=== PATIENT | male | born 1955 | race Caucasian/White ===

== ENCOUNTER 2018-01-26 12:49 | Inpatient (IN) ==
[2018-01-26 13:09] LABS: Baso # (Auto) 0.1 th/mm3 (0.0-0.2); Baso % (Auto) 1.3 % (0.0-2.0); Eos # (Auto) 0.2 th/mm3 (0.0-0.4); Eos % (Auto) 2.6 % (0.0-4.0); Hematocrit 40.3 % (39.0-51.0); Hemoglobin 13.5 gm/dL (13.0-17.0); Lymph # (Auto) 1.6 th/mm3 (1.0-4.8); Lymph % (Auto) 23.1 % (9.0-44.0); Mean Corpuscular HGB Conc 33.5 % (32.0-36.0); Mean Corpuscular Hemoglobin 30.5 pg (27.0-34.0); Mean Corpuscular Volume 91.2 fL (80.0-100.0); Mono # (Auto) 0.9 th/mm3 (0.0-0.9); Mono % (Auto) 12.8 % (0.0-8.0); Neut # (Auto) 4.2 th/mm3 (1.8-7.7); Neut % (Auto) 60.2 % (16.0-70.0); Platelet Count 320 th/mm3 (150-450); Red Blood Count 4.41 mil/mm3 (4.50-5.90); Red Cell Distribution Width 15.2 % (11.6-17.2)
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
[2018-01-26 13:19] LABS: Activated Partial Thrombo Time 25.8 sec (24.3-30.1); INR 1.1 Ratio
--- NOTE | 2018-01-26 13:19 | CT ---
EXAM DATE: 01/26/2018 1:12 PM EDT AGE/SEX: 89 years / Male INDICATIONS: Trauma Alert CLINICAL DATA: This is the patient's initial encounter. Patient reports that signs and symptoms have been present for 1 day and indicates a pain score of Nonresponsive. MEDICAL/SURGICAL HISTORY: Non-responsive. Non-responsive. RADIATION DOSE: 25.06 CTDI (mGy) COMPARISON: No prior exams available for comparison. TECHNIQUE: Contiguous axial images were obtained using helical multirow detector technique. The vol umetric data was post-processed with multiplanar reconstruction in oblique axial, sagittal, and coron al planes. Using automated exposure control and adjustment of the mA and/or kV according to patient s ize, radiation dose was kept as low as reasonably achievable to obtain optimal diagnostic quality simon ges. DICOM format image data is available electronically for review and comparison. FINDINGS: There is normal sagittal spinal alignment without anterolisthesis or retrolisthesis. No acute fractur e or dislocation is identified. 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 There is incomplete fus ion of the posterior C1 ring as well. There is degenerative disc disease at C4-C5 and extending throu gh C6-C7. Facet arthrosis is most prominent on the right at C3-C4 and on the left at C7-T1. No large disc herniation is seen in the upper cervical spine. The visualized surrounding structures demonstrat e no acute finding. CONCLUSION: 1. No acute cervical spine abnormality is identified. 2. There is multilevel degenerative change, as above, with congenital variant of the C1 ring. Electronically signed by: Jacob Diaz MD 01/26/2018 1:18 PM EDT
[2018-01-26] MEDS ORDERED: ceFAZolin 2 GM Premix Inj 2 GM/50 ML PIGGYBACK IV.SIG ONE (13:21)
[2018-01-26] MEDS ORDERED: Diphtheria/Tetanus/Pertussis Vaccine Inj 0.5 ML Syringe IM ONE (13:22)
[2018-01-26] MEDS ORDERED: Lidocaine 1%/Epinephrine 1:100,000 Inj 30 ML Vial ONE (13:29)
--- NOTE | 2018-01-26 13:29 | CT ---
EXAM DATE: 01/26/2018 1:21 PM EDT AGE/SEX: 89 years / Male INDICATIONS: Trauma Alert CLINICAL DATA: This is the patient's initial encounter. Patient reports that signs and symptoms have been present for 1 day and indicates a pain score of Nonresponsive. MEDICAL/SURGICAL HISTORY: Non-responsive. Non-responsive. RADIATION DOSE: 9.01 CTDI (mGy) COMPARISON: No prior exams available for comparison. TECHNIQUE: Multiple contiguous axial images were obtained through the chest during bolus infusion of 98ML ml Omnipaque 350 (iohexol) nonionic water-soluble contrast as a single exam dose. Images wer e obtained in suspended respiration using multiple row detector helical technique. Using automated e xposure control and adjustment of the mA and/or kV according to patient size, radiation dose was kept as low as reasonably achievable to obtain optimal diagnostic quality images. DICOM format image sony a is available electronically for review and comparison. FINDINGS: Lungs: The lungs are symmetrically aerated. No infiltrates or nodular densities are seen. Mediastinum: There is good visualization of the great vessels of the middle mediastinum. No evidenc e of mediastinal or hilar adenopathy/mass. Pleurae: No evidence of focal thickening or pleural effusion. Axillae: Unremarkable. Bony Structures: There are some hypertrophic changes in the sternum which I believe are chronic may be an old healed fracture but there is no evidence of an acute fracture Miscellaneous: The examination was extended to include the upper abdomen, and both adrenal glands ar e normal in size and configuration. CONCLUSION: 1. Old healed sternal fracture or postoperative change. 2. 3.7 cm left retroperitoneal mass, adjacent to the left adrenal gland indeterminant, should be wor ked up on an outpatient basis. It also abuts the stomach, clearly chronic. Electronically signed by: Deven Schaeffer MD 01/26/2018 1:28 PM EDT
--- NOTE | 2018-01-26 13:38 | CT ---
EXAM DATE: 01/26/2018 1:21 PM EDT AGE/SEX: 89 years / Male INDICATIONS: Trauma Alert CLINICAL DATA: This is the patient's initial encounter. Patient reports that signs and symptoms have been present for 1 day and indicates a pain score of Nonresponsive. MEDICAL/SURGICAL HISTORY: Non-responsive. Non-responsive. ORAL CONTRAST: No oral contrast ingested. RADIATION DOSE: 9.01 CTDI (mGy) COMPARISON: No prior exams available for comparison. TECHNIQUE: Multiple contiguous axial images were obtained through the abdomen and pelvis following b olus infusion of 98ML ml Omnipaque 350 (iohexol) nonionic water-soluble contrast as a single exam d ose. No oral contrast ingested. Using automated exposure control and adjustment of the mA and/or kV according to patient size, radiation dose was kept as low as reasonably achievable to obtain optimal diagnostic quality images. DICOM format image data is available electronically for review and compar reji. FINDINGS: Lower chest: Please refer to chest CT report for description of the supradiaphragmatic findings. Hepatobiliary: No acute liver injury is present. No calcified gallstones are present. Kidneys: No hydronephrosis, stone, or mass. Adrenal Glands: Within normal limits. Spleen: No normal splenic tissue is identified. There is lobulated enhancing material in the left upp er quadrant likely represents residual spleen. Additionally, in a left suprarenal location adjacent t o the tail the pancreas is a lobulated soft tissue mass measuring 4.3 x 3.3 cm similar density to the left upper quadrant structure. In the left pelvis there is a 2.3 cm hyperdense soft tissue density s tructure. Pancreas: No acute injury. Pancreatic head is fatty replaced. Vascular: The aorta is nonaneurysmal. There is mild atherosclerotic disease. No acute injury is ident ified. Bowel/Mesentery: The stomach and small bowel demonstrate no abnormality. No acute colon abnormality i s seen. There is no free intraperitoneal air or fluid. Abdominal Wall: There is a small fat-containing umbilical hernia. Retroperitoneum: No lymphadenopathy. Bladder: No wall thickening or mass. Reproductive: Within normal limits. Inguinal: No lymphadenopathy or hernia. Musculoskeletal: No acute osseous abnormality is identified. There are degenerative changes of the nghia mbar spine with severe degenerative disc disease at L4-L5. Spinal stimulator leads are present in ant erior the posterior aspect of the thoracic spinal canal. No fracture is identified. Spinal stimulator plaque is subcutaneous implanted in the left gluteal region. CONCLUSION: 1. No acute traumatic injury is identified within the abdomen or pelvis. 2. There is lobulated soft tissue in the left upper quadrant, in a left suprarenal location, and in the left pelvis. The appearance and density strongly suggests that this represents residual splenic t issue and intraperitoneal splenules possibly from prior splenic fracture or surgery. This could be co nfirmed with nuclear medicine sulfur colloid or heat damaged red blood cell scan, if needed. Electronically signed by: Jacob Diaz MD 01/26/2018 1:37 PM EDT
[2018-01-26] MEDS: Sod Chloride 0.9% Inj 1,000 ML IV.CONT SCH ×2 (14:05→20:50)
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
[2018-01-26] MEDS: Pantoprazole Inj 40 MG Vial IV.PUSH SCH (15:50)
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
[2018-01-26] MEDS ORDERED: Dextrose 50% in Water 50 ML Vial IV.PUSH PRN (17:00)
--- NOTE | 2018-01-26 18:01 | MP ---
cc: Armen Solorzano MD DATE OF OPERATION: 01/26/2018 PREPROCEDURE DIAGNOSES: Bleeding laceration to the occiput. POSTPROCEDURE DIAGNOSIS: Bleeding laceration to the occiput. PROCEDURE: Suture closure of laceration with control of hemorrhage. SURGEON: Armen Solorzano MD ANESTHESIA: Lidocaine 1% with epinephrine. COMPLICATIONS: None. At the patient's bedside, the area of concern was identified. His hair in this region was shaved. The area was prepped with Betadine, and 2-0 Prolene was then used to close the laceration and control the bleeding. Two interrupted [id number] stitches were placed. This seemed to control the bleeding. The skin edges in between were approximated with moon. The patient tolerated the procedure well. Armen Solorzano MD JLS/deedee , 02:32 PM , 02:39 PM
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
[2018-01-26] MEDS ORDERED: levETIRAcetam 500mg/100mL Inj 100 ML IV.SIG SCH (21:00)
[2018-01-27] MEDS: Morphine Sulfate Inj 2 MG/ML Vial IV.PUSH PRN ×3 (01:09→21:47)
[2018-01-27] MEDS: Docusate Sodium 100 MG Capsule PO SCH ×3 (02:22→21:47)
[2018-01-27] MEDS ORDERED: Chlorhexidine Gluconate 2% 1 Pack (2 Cloths) TOPICAL PRN (04:00)
[2018-01-27] MEDS: Chlorhexidine Gluconate 2% 1 Pack (2 Cloths) TOPICAL SCH (04:50)
[2018-01-27 05:21] LABS: Baso # (Auto) 0.1 th/mm3 (0.0-0.2); Baso % (Auto) 0.9 % (0.0-2.0); Eos # (Auto) 0.2 th/mm3 (0.0-0.4); Eos % (Auto) 2.8 % (0.0-4.0); Hemoglobin 12.4 gm/dL (13.0-17.0); Lymph # (Auto) 2.3 th/mm3 (1.0-4.8); Lymph % (Auto) 27.3 % (9.0-44.0); Mean Corpuscular HGB Conc 33.5 % (32.0-36.0); Mean Corpuscular Hemoglobin 30.6 pg (27.0-34.0); Mean Corpuscular Volume 91.4 fL (80.0-100.0); Mean Platelet Volume 6.9 fL (7.0-11.0); Mono # (Auto) 1.3 th/mm3 (0.0-0.9); Mono % (Auto) 16.2 % (0.0-8.0); Neut # (Auto) 4.4 th/mm3 (1.8-7.7); Neut % (Auto) 52.8 % (16.0-70.0); Platelet Count 273 th/mm3 (150-450); Red Blood Count 4.04 mil/mm3 (4.50-5.90); Red Cell Distribution Width 15.2 % (11.6-17.2); White Blood Count 8.3 th/mm3 (4.0-11.0)
[2018-01-27 05:47] LABS: Albumin 3.7 g/dL (3.4-5.0); Anion Gap 9 meq/L (5-15); Aspartate Aminotransferase 12 U/L (15-37); Blood Urea Nitrogen 10 mg/dL (7-18); Calcium 8.4 mg/dL (8.5-10.1); Carbon Dioxide 31.5 meq/L (21.0-32.0); Chloride 94 meq/L (98-107); Glomerular Filtration Rate 51 mL/min (>89); Glucose,Random 125 mg/dL (74-106); Potassium 3.5 meq/L (3.5-5.1); Sodium 134 meq/L (136-145)
[2018-01-27 06:00] LABS: Alanine Aminotransferase 19 U/L (12-78); Alkaline Phosphatase 70 U/L (45-117); Total Protein 6.9 g/dL (6.4-8.2)
[2018-01-27] MEDS: Insulin NovoLIN Regular Correctional Sugar Inj SQ SCH ×6 (07:57→22:31)
[2018-01-27] MEDS: Sod Chloride 0.9% Inj 1,000 ML IV.CONT SCH ×3 (08:12→19:38)
[2018-01-27] MEDS: Metoprolol Tartrate 25 MG Tablet PO SCH (08:13)
[2018-01-27] MEDS: Acetaminophen 325 MG Tablet PO PRN ×2 (08:13→16:48)
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
--- NOTE | 2018-01-27 09:32 | CT ---
EXAM DATE: 01/27/2018 9:28 AM EDT AGE/SEX: 62 years / Male INDICATIONS: Follow up intracerebral hemorrhage CLINICAL DATA: This is the patient's subsequent encounter. Patient reports that signs and symptoms h ave been present for 2 days and indicates a pain score of Nonresponsive. MEDICAL/SURGICAL HISTORY: Hypertension. Diabetes. Pacemaker. RADIATION DOSE: 67.45 CTDI (mGy) COMPARISON: [facility], CT HEAD W/O CONTRAST, 01/26/2018. . TECHNIQUE: CT of the head without contrast. Using automated exposure control and adjustment of the mA and/or kV according to patient size, radiation dose was kept as low as reasonably achievable to ob tain optimal diagnostic quality images. DICOM format image data is available electronically for revi ew and comparison. FINDINGS: Cerebrum: Small cortical contusions are seen in the orbital frontal region on the left. The contusio n basal ganglia head of the caudate on the right side has progressed and now measures 2 cm. Ventricular size is appropriate Posterior Fossa: The cerebellum and brainstem are intact. The 4th ventricle is midline. The cerebe llopontine angle is unremarkable. Extracranial: The visualized portion of the orbits is intact. Skull: The calvaria is intact. No evidence of skull fracture. Large cephalohematoma left occipital region. CONCLUSION: 1. Progression of the known contusions. The most significant change is in the basal ganglia right fr ontal region. . Electronically signed by: Coleman Coates MD 01/27/2018 9:31 AM EDT
[2018-01-27] MEDS ORDERED: Potassium Bicarbonate 25 MEQ Effervescent Tablet PO ONE (10:15)
[2018-01-27] MEDS ORDERED: Potassium Chloride 25 MEQ Effervescent Tablet PO ONE (10:30)
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
[2018-01-27] MEDS: Pantoprazole Inj 40 MG Vial IV.PUSH SCH (15:37)
--- NOTE | 2018-01-27 18:13 | P.PNNS ---
Subjective Interval history: Pt awake and alert. He is confused at times but pleasant. He is oriented to place. He complains of frontal headache, with nausea. Denies weakness. <CardianeAldair - Last Filed: 01/27/18 18:07> Physical Exam Vital signs: Vital Signs 01/26/18 18:29 01/26/18 19:00 01/26/18 20:00 Temperature 99.0 F Pulse Rate 74 92 H 89 Respiratory Rate 22 23 19 Blood Pressure 167/82 H Pulse Oximetry 98 97 94 L 01/26/18 21:00 01/26/18 21:06 01/26/18 21:08 Temperature Pulse Rate 72 66 Respiratory Rate 15 15 13 Blood Pressure 121/61 Pulse Oximetry 92 L 93 L 01/26/18 22:00 01/27/18 00:00 01/27/18 02:00 Temperature 98.6 F Pulse Rate 66 60 64 Respiratory Rate 16 13 14 Blood Pressure 134/69 114/65 125/67 Pulse Oximetry 93 L 93 L 93 L 01/27/18 04:00 01/27/18 05:44 01/27/18 06:00 Temperature 98.5 F Pulse Rate 78 74 Respiratory Rate 21 15 14 Blood Pressure 118/72 149/80 H Pulse Oximetry 96 93 L 01/27/18 07:25 01/27/18 08:00 01/27/18 09:47 Temperature Pulse Rate Respiratory Rate 13 16 Blood Pressure Pulse Oximetry 96 96 Intake & Output 01/26/18 01/27/18 01/27/18 18:59 06:59 18:59 Intake Total 770 / 770 2685 / 2685 Output Total 1200 / 1200 600 / 600 Balance -430 / -430 2085 / 2085 Weight 108.8 kg 111.1 kg Intake: IV 50 / 50 2205 / 2205 NS Inj 1,000 ML @ 100 mls/hr IV 1999 / 1999 .CONT .Q10H [facility] Rx#:[id number] Ofirmev Inj 1,000 mg In 100 ml 100 / 100 @ 400 mls/hr IV.SIG Q8H PRN Rx# :[id number] Keppra Inj 500 MG In NS Inj 100 105 / 105 ML @ 400 mls/hr IV.SIG Q12H [facility] Rx#:[id number] Oral 720 / 720 480 / 480 Output: Urine 1200 / 1200 600 / 600 Other: # Voids 2 2 Date of Last Bowel Movement 01/27/18 01/27/18 # Bowel Movements 1 Weight On Admission 240 kg - Constitutional no acute distress, obese - Routine HEENT Exam Head: Absent: atraumatic (Pt reportedly with laceration to posterior head with sutures and moon in place. Currently with bandage in place.) Eye: Present: PERRL (Pupils 3mm bilaterally reactive bilaterally.) - Routine Respiratory Exam Present: CTA bilaterally. Absent: respiratory distress, rhonchi, wheezes - Routine Cardiovascular Exam Present: RRR, S1, S2. Absent: murmur - Routine Abdominal Exam Present: soft, normoactive bowel sounds. Absent: distended, firm - Routine Skin Exam Absent: cyanosis, erythema Comments: laceration to occipital area with bandage in place. RN states sutures and moon on place. - Routine Neurological Exam Present: alert, oriented X3, altered mental status (Some confusion but pleasant. Pt with short term memory loss.), normal speech. Absent: motor deficit - Detailed Neurological Exam: Coma Scale Eye Opening: Spontaneous Verbal Response: Oriented Motor Response: Obey commands [place] Coma Scale Total: 15 - Routine Psychiatric Exam Present: normal affect, cooperative. Absent: good insight, good judgment, anxious, agitated <Aldair Monsalve - Last Filed: 01/27/18 18:07> Vital signs: Vital Signs 01/26/18 19:00 01/26/18 20:00 01/26/18 21:00 Temperature 99.0 F Pulse Rate 92 H 89 72 Respiratory Rate 23 19 15 Blood Pressure 121/61 Pulse Oximetry 97 94 L 92 L 01/26/18 21:06 01/26/18 21:08 01/26/18 22:00 Temperature Pulse Rate 66 66 Respiratory Rate 15 13 16 Blood Pressure 134/69 Pulse Oximetry 93 L 93 L 01/27/18 00:00 01/27/18 02:00 01/27/18 04:00 Temperature 98.6 F 98.5 F Pulse Rate 60 64 78 Respiratory Rate 13 14 21 Blood Pressure 114/65 125/67 118/72 Pulse Oximetry 93 L 93 L 96 01/27/18 05:44 01/27/18 06:00 01/27/18 07:25 Temperature Pulse Rate 74 Respiratory Rate 15 14 Blood Pressure 149/80 H Pulse Oximetry 93 L 96 01/27/18 08:00 01/27/18 09:47 01/27/18 12:00 Temperature 98.5 F 98.3 F Pulse Rate 74 64 Respiratory Rate 13 16 14 Blood Pressure 159/80 H 147/75 H Pulse Oximetry 93 L 95 01/27/18 16:00 Temperature 98.4 F Pulse Rate 78 Respiratory Rate 14 Blood Pressure 173/83 H Pulse Oximetry 94 L Intake & Output 01/26/18 01/27/18 01/27/18 18:59 06:59 18:59 Intake Total 770 / 770 2685 / 2685 Output Total 1200 / 1200 600 / 600 Balance -430 / -430 2085 / 2085 Weight 108.8 kg 111.1 kg Intake: IV 50 / 50 2205 / 2205 NS Inj 1,000 ML @ 100 mls/hr IV 1999 / 1999 .CONT .Q10H [facility] Rx#:[id number] Ofirmev Inj 1,000 mg In 100 ml 100 / 100 @ 400 mls/hr IV.SIG Q8H PRN Rx# :[id number] Keppra Inj 500 MG In NS Inj 100 105 / 105 ML @ 400 mls/hr IV.SIG Q12H [facility] Rx#:[id number] Oral 720 / 720 480 / 480 Output: Urine 1200 / 1200 600 / 600 Other: # Voids 2 2 Date of Last Bowel Movement 01/27/18 01/27/18 # Bowel Movements 1 Weight On Admission 240 kg - Additional findings Additional findings: Impressions Chest X-Ray 01/26/18 12:50 CONCLUSION: Lungs are clear. No obvious fracture seen. Pacemaker and epidural stimulator in good position. Pelvis X-Ray 01/26/18 12:50 CONCLUSION: Epidural stimulator device overlies left hemipelvis Abdomen/Pelvis CT 01/26/18 12:51 CONCLUSION: 1. No acute traumatic injury is identified within the abdomen or pelvis. 2. There is lobulated soft tissue in the left upper quadrant, in a left suprarenal location, and in the left pelvis. The appearance and density strongly suggests that this represents residual splenic tissue and intraperitoneal splenules possibly from prior splenic fracture or surgery. This could be confirmed with nuclear medicine sulfur colloid or heat damaged red blood cell scan, if needed. Cervical Spine CT 01/26/18 12:51 CONCLUSION: 1. No acute cervical spine abnormality is identified. 2. There is multilevel degenerative change, as above, with congenital variant of the C1 ring. Chest CT 01/26/18 12:51 CONCLUSION: 1. Old healed sternal fracture or postoperative change. 2. 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 It also abuts the stomach, clearly chronic. Head CT 01/26/18 12:51 CONCLUSION: 1. Small areas of intraparenchymal hemorrhage as described above. No drainable hemorrhagic collections are seen. No mass or mass effect. . Head CT 01/27/18 00:00 CONCLUSION: 1. Progression of the known contusions. The most significant change is in the basal ganglia right frontal region. . <Stephon Quach - Last Filed: 01/27/18 18:37> Assessment and Plan - Assessment (1) Intracranial hemorrhage Code(s): I62.9 - Nontraumatic intracranial hemorrhage, unspecified Status: Acute (2) Laceration of occipital scalp Code(s): S01.01XA - Laceration without foreign body of scalp, initial encounter Status: Acute Qualifiers: Encounter type: initial encounter Qualified Code(s): S01.01XA - Laceration without foreign body of scalp, initial encounter (3) Mild major neurocognitive disorder as late effect of traumatic brain injury without behavioral disturbance Code(s): S06.9X9S - Unspecified intracranial injury with loss of consciousness of unspecified duration, sequela; F02.80 - Dementia in other diseases classified elsewhere without behavioral disturbance Status: Acute - Plan A: [age]yoM in [facility], [facility] on [facility]. Spine cleared (CT C-spine negative). Head CT Some blossoming of right basal ganglia area contusion. P: Continue with neuro checks Continue to get oob with assistance. Continue with blood pressure control SCDs for DVT prophylaxis Continue with Keppra for seizure prophylaxis. Discussed plan/care with RN. <Aldair Monsalve - Last Filed: 01/27/18 18:07> - Attending Attestation The exam, history, and the medical decision-making described in the above note were completed with the assistance of the mid-level provider. I reviewed and agree with the findings presented. I attest that I had a [id number] encounter with the patient on the same day, and personally performed and documented my assessment and findings in the medical record. Stable examination although follow-up imaging study reveals blossoming right basal ganglia contusion/hemorrhage. He is hypertensive with systolic blood pressure in the 170s and we will regulate his hypertension better and continue monitoring closely in the surgical intensive care unit. Discussed with patient and nursing staff. <Stephon Quach - Last Filed: 01/27/18 18:37>
[2018-01-27] MEDS: Lisinopril 10 MG Tablet PO SCH (21:16)
[2018-01-28] MEDS: Chlorhexidine Gluconate 2% 1 Pack (2 Cloths) TOPICAL SCH (06:31)
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
[2018-01-28] MEDS: Insulin NovoLIN Regular Correctional Sugar Inj SQ SCH ×4 (08:53→21:58)
[2018-01-28] MEDS: Lisinopril 10 MG Tablet PO SCH ×2 (08:54→20:54)
[2018-01-28] MEDS: Docusate Sodium 100 MG Capsule PO SCH ×2 (08:54→20:53)
[2018-01-28] MEDS: Metoprolol Tartrate 25 MG Tablet PO SCH ×2 (08:55→20:54)
[2018-01-28] MEDS ORDERED: Melatonin 5 MG Tablet PO PRN (09:45)
--- NOTE | 2018-01-28 10:00 | P.PNNS ---
Subjective Interval history: Pt awake and alert. He is confused. He is repeatedly picking at lines despite pieter told not to. RN states pts mother stated he takes "a lot of Xanax and pts brother states he gets pain medication from different doctors." He complains of mild frontal headache. Denies weakness. <Aldair Monsalve - Last Filed: 01/28/18 09:44> Physical Exam Vital signs: Vital Signs 01/27/18 09:47 01/27/18 12:00 01/27/18 16:00 Temperature 98.3 F 98.4 F Pulse Rate 64 78 Respiratory Rate 16 14 14 Blood Pressure 147/75 H 173/83 H Pulse Oximetry 95 94 L 01/27/18 17:20 01/27/18 18:00 01/27/18 20:00 Temperature 97.1 F L Pulse Rate 78 76 Respiratory Rate 16 21 Blood Pressure 179/97 H Pulse Oximetry 94 L 01/27/18 21:27 01/27/18 22:00 01/28/18 00:00 Temperature 97.4 F L Pulse Rate 68 94 H Respiratory Rate 22 Blood Pressure 157/83 H Pulse Oximetry 96 96 01/28/18 02:00 01/28/18 04:00 01/28/18 06:00 Temperature 98.6 F Pulse Rate 84 80 74 Respiratory Rate 21 Blood Pressure 147/78 H Pulse Oximetry 95 01/28/18 07:19 Temperature Pulse Rate Respiratory Rate Blood Pressure Pulse Oximetry 92 L Intake & Output 01/27/18 01/28/18 01/28/18 18:59 06:59 18:59 Intake Total 825 / 825 785 / 785 Output Total 1750 / 1750 1050 / 1050 Balance -925 / -925 -265 / -265 Intake: IV 105 / 105 305 / 305 NS Inj 1,000 ML @ 100 mls/hr IV 200 / 200 .CONT .Q10H [facility] Rx#:[id number] Keppra Inj 500 MG In NS Inj 100 105 / 105 105 / 105 ML @ 400 mls/hr IV.SIG Q12H [facility] Rx#:[id number] Oral 720 / 720 480 / 480 Output: Urine 1750 / 1750 1050 / 1050 Other: # Voids 2 Date of Last Bowel Movement 01/27/18 01/27/18 # Bowel Movements 1 0 - Constitutional mild distress (Related to his confusion. No respiratory distress or unstable vitals.), agitated (Mild to moderate picking at lines despite being told not to. ) - Routine HEENT Exam Head: Absent: atraumatic (bandage on back of head dry.) Eye: Present: PERRL (Pupils 3mm bilaterally reactive bilaterally.) - Routine Respiratory Exam Present: CTA bilaterally. Absent: respiratory distress, rhonchi, wheezes - Routine Cardiovascular Exam Present: RRR, S1, S2. Absent: murmur - Routine Abdominal Exam Present: soft, normoactive bowel sounds. Absent: tenderness, distended, firm - Routine Skin Exam Absent: cyanosis, erythema - Routine Neurological Exam Present: alert, oriented X3 (Oriented at times but overall confused.), altered mental status (Confused ), moving all extremities, normal speech (but confused.) , tremors (Some mild tremors.). Absent: sensory deficit, motor deficit - Detailed Neurological Exam: Coma Scale Eye Opening: Spontaneous Verbal Response: Oriented (but confused.) Motor Response: Obey commands [place] Coma Scale Total: 15 - Routine Psychiatric Exam Present: cooperative, anxious, agitated. Absent: good insight, good judgment <Aldair Monsalve - Last Filed: 01/28/18 09:44> Vital signs: Vital Signs 01/27/18 16:00 01/27/18 17:20 01/27/18 18:00 Temperature 98.4 F Pulse Rate 78 78 Respiratory Rate 14 16 Blood Pressure 173/83 H Pulse Oximetry 94 L 01/27/18 20:00 01/27/18 21:27 01/27/18 22:00 Temperature 97.1 F L Pulse Rate 76 68 Respiratory Rate 21 Blood Pressure 179/97 H Pulse Oximetry 94 L 96 01/28/18 00:00 01/28/18 02:00 01/28/18 04:00 Temperature 97.4 F L 98.6 F Pulse Rate 94 H 84 80 Respiratory Rate 22 21 Blood Pressure 157/83 H 147/78 H Pulse Oximetry 96 95 01/28/18 06:00 01/28/18 07:19 Temperature Pulse Rate 74 Respiratory Rate Blood Pressure Pulse Oximetry 92 L Intake & Output 01/27/18 01/28/18 01/28/18 18:59 06:59 18:59 Intake Total 825 / 825 785 / 785 105 / 105 Output Total 1750 / 1750 1050 / 1050 Balance -925 / -925 -265 / -265 105 / 105 Intake: IV 105 / 105 305 / 305 105 / 105 NS Inj 1,000 ML @ 100 mls/hr IV 200 / 200 .CONT .Q10H [facility] Rx#:[id number] Keppra Inj 500 MG In NS Inj 100 105 / 105 105 / 105 105 / 105 ML @ 400 mls/hr IV.SIG Q12H [facility] Rx#:[id number] Oral 720 / 720 480 / 480 Output: Urine 1750 / 1750 1050 / 1050 Other: # Voids 2 Date of Last Bowel Movement 01/27/18 01/27/18 # Bowel Movements 1 0 <Stephon Quach - Last Filed: 01/28/18 13:22> Assessment and Plan - Assessment (1) Intracranial hemorrhage Code(s): I62.9 - Nontraumatic intracranial hemorrhage, unspecified Status: Acute (2) Laceration of occipital scalp Code(s): S01.01XA - Laceration without foreign body of scalp, initial encounter Status: Acute Qualifiers: Encounter type: initial encounter Qualified Code(s): S01.01XA - Laceration without foreign body of scalp, initial encounter (3) Mild major neurocognitive disorder as late effect of traumatic brain injury without behavioral disturbance Code(s): S06.9X9S - Unspecified intracranial injury with loss of consciousness of unspecified duration, sequela; F02.80 - Dementia in other diseases classified elsewhere without behavioral disturbance Status: Acute - Plan A: [age]yoM in [facility], [facility] on [facility]. Spine cleared (CT C-spine negative). Head CT Some blossoming of right basal ganglia area contusion. Pt appears to be going through withdrawal. RN states family members have stated he takes Xanax and Narcotic pain medication. RN has trying to call the pharmacy to find out what he is on. Pt is confused and is not relating a good history. P: Continue with neuro checks Continue to get oob with assistance. Continue with blood pressure control SCDs for DVT prophylaxis Continue with Keppra for seizure prophylaxis. Discussed plan/care with RN. <Aldair Monsalve - Last Filed: 01/28/18 09:44> - Attending Attestation The exam, history, and the medical decision-making described in the above note were completed with the assistance of the mid-level provider. I reviewed and agree with the findings presented. I attest that I had a [id number] encounter with the patient on the same day, and personally performed and documented my assessment and findings in the medical record. Sitting up in chair and eating lunch. Nursing staff and family relates that he is more confused today than he was yesterday and likely related to barbiturate withdrawal. He takes Xanax 2 mg twice a day. We will start him on Xanax at a lower dose continue with hypertension regulation and monitoring. Discussed with family at bedside and nursing staff. <Stephon Quach - Last Filed: 01/28/18 13:22>
[2018-01-28] MEDS: Pantoprazole Inj 40 MG Vial IV.PUSH SCH (13:44)
[2018-01-28] MEDS: QUEtiapine 25 MG Tablet PO SCH (13:45)
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
--- NOTE | 2018-01-28 16:15 | ECG ---
Date Performed: 01/27/2018 Time Performed: 13:30:20 PTAGE: 62 years EKG: Sinus rhythm WITH FIRST DEGREE AV BLOCK MARKED LEFT AXIS DEVIATION INCOMPLETE RIGHT BUNDLE BRANCH BLOCK LEFT VENT RICULAR HYPERTROPHY AND ST-T CHANGE POSSIBLE SEPTAL MYOCARDIAL INFARCTION , OF INDETERMINATE AGE ABNO RMAL ECG Consider anterolateral ischemia PREVIOUS TRACING :01/27/2018 @11.28 DOCTOR: Giuseppe Benton Interpretating Date/Time 01/28/2018 16:15:14
--- NOTE | 2018-01-28 16:15 | ECG ---
Date Performed: 01/27/2018 Time Performed: 11:28:06 PTAGE: 62 years EKG: Sinus rhythm with borderline 1st degree A-V block. Left axis deviation Left ventricular hypertrophy Extensive ST- T changes are probably due to ventricular hypertrophy Consider Lateral Ischemia Abnormal ECG NO PREVIOUS TRACING DOCTOR: Giuseppe Benton Interpretating Date/Time 01/28/2018 16:14:29
[2018-01-28] MEDS ORDERED: ALPRAZolam 0.5 MG Tablet PO SCH (18:00)
[2018-01-28] MEDS: Gabapentin 400 MG Capsule PO SCH (18:21)
[2018-01-28] MEDS: amLODIPine 5 MG Tablet PO SCH (18:21)
[2018-01-28] MEDS: hydrALAZINE HCl Inj 20 MG/ML Vial IV.PUSH PRN (18:52)
[2018-01-28] MEDS: QUEtiapine 100 MG Tablet PO SCH (20:53)
[2018-01-29] MEDS: Chlorhexidine Gluconate 2% 1 Pack (2 Cloths) TOPICAL SCH (03:23)
[2018-01-29 04:35] LABS: Baso # (Auto) 0.1 th/mm3 (0.0-0.2); Baso % (Auto) 1.2 % (0.0-2.0); Eos # (Auto) 0.3 th/mm3 (0.0-0.4); Eos % (Auto) 4.5 % (0.0-4.0); Hematocrit 32.8 % (39.0-51.0); Hemoglobin 10.9 gm/dL (13.0-17.0); Lymph # (Auto) 1.8 th/mm3 (1.0-4.8); Lymph % (Auto) 25.1 % (9.0-44.0); Mean Corpuscular HGB Conc 33.2 % (32.0-36.0); Mean Corpuscular Hemoglobin 30.5 pg (27.0-34.0); Mean Corpuscular Volume 92.1 fL (80.0-100.0); Mean Platelet Volume 7.1 fL (7.0-11.0); Mono # (Auto) 0.9 th/mm3 (0.0-0.9); Mono % (Auto) 12.2 % (0.0-8.0); Neut # (Auto) 4.1 th/mm3 (1.8-7.7); Platelet Count 263 th/mm3 (150-450); Red Blood Count 3.56 mil/mm3 (4.50-5.90); Red Cell Distribution Width 15.5 % (11.6-17.2); White Blood Count 7.1 th/mm3 (4.0-11.0)
[2018-01-29 04:45] LABS: Calcium 8.6 mg/dL (8.5-10.1); Carbon Dioxide 29.7 meq/L (21.0-32.0); Potassium 3.6 meq/L (3.5-5.1)
--- NOTE | 2018-01-29 08:25 | P.PNNPSY ---
- Behavior Intact: Impulsive/agitated - Cognitive Moderate: Cognitive, Attention/concentration, Confused/orientation, Insight/ awareness, Judgment/problem solving, Memory - Progress Notes/Response to Treatment Contents of Sessions: Level of consciousness Time with Patient: 30 minutes Premorbid Psychological Status: Premorbid Cognitive, Emotional and Behavioral Status: Stable. The patient has high school years of education and a solid work history prior to this injury. The patient has no prior psychiatric difficulties, as described above. Substance abuse history is unremarkable. Behavioral Reactions of Patient and Family/Support System: Stable. The patient s family is experiencing ongoing issues of adjustment given the nature of the injury, and this aspect of recovery will require ongoing monitoring. Emotional/Behavioral Status of Patient and Family/Support System: Stable. Pertinent issues, if appropriate to this patients clinical care, are described in detail above. Maximizing Acute Care Outcome: It is recommended that the patient be monitored for emergent behavioral impulsivity as the medical condition evolves. This patients neuropathological challenges may limit rehabilitation potential going forward, and these challenges will require specialized therapeutic skills to maximize outcome. Additionally, the patients family is experiencing ongoing issues of adjustment given the traumatic nature of the injury, and they may benefit from ongoing psychological assistance. At this point in the recovery process, the patient does have cognitive capacity as the patient is unable to understand a situation and its likely consequences, and he is able to manipulate information rationally. Cognitive capacity will be assessed throughout the recovery process. Anticipated Problems: Ongoing areas of concern will include behavioral impulsivity, lack of insight and judgment, which is expected to improve with time and treatment. Treatment Plan: This clinician will continue to follow with you throughout the course of this patients critical care treatment, and I will be available to meet with the patients family/support system to facilitate their understanding and the ongoing care of their family member. The goals of neuropsychological intervention shall be both educational and supportive to the family/support system as is deemed clinically appropriate. [place] COG Scale: Level V Disinhibition Score: 17.50 Aggression Score: 14.00 Lability Score: 14.00 Agitated Behavior Total Score: 16 Impression: 62 year old male s/p complicated [place] [facility] [place] Progress Note Narrative: PTD 3. The patient was exhibiting signs of agitation/restlessness yesterday that have been successfully treated with Seroquel . His mentation is much clearer today. He also remains on Keppra and Melatonin to facilitate sleep cycle. He is at least a Rancho V, perhaps . His ABS today is 16 (17.5,14,14 ) down from 19T yesterday. I will follow. - Diagnosis (1) Mild major neurocognitive disorder as late effect of traumatic brain injury without behavioral disturbance Status: Acute
[2018-01-29] MEDS: Insulin NovoLIN Regular Correctional Sugar Inj SQ SCH ×4 (09:03→21:58)
[2018-01-29] MEDS: amLODIPine 5 MG Tablet PO SCH (09:50)
[2018-01-29] MEDS: Docusate Sodium 100 MG Capsule PO SCH ×2 (09:50→20:40)
[2018-01-29] MEDS: Lisinopril 10 MG Tablet PO SCH ×2 (09:50→20:40)
[2018-01-29] MEDS: Gabapentin 400 MG Capsule PO SCH ×3 (09:50→17:18)
[2018-01-29] MEDS: Metoprolol Tartrate 25 MG Tablet PO SCH ×2 (09:51→21:58)
[2018-01-29] MEDS: QUEtiapine 25 MG Tablet PO SCH ×2 (09:55→13:55)
--- NOTE | 2018-01-29 10:11 | P.PNNS ---
Subjective Interval history: Pt awake and alert. Much less confused and anxious this morning. Had headache earlier but not now. No n/v. <Aldair Monsalve - Last Filed: 01/29/18 10:07> Physical Exam Vital signs: Vital Signs 01/28/18 12:00 01/28/18 14:00 01/28/18 16:00 Temperature 98.5 F 98.3 F Pulse Rate 72 80 92 H Respiratory Rate 20 24 Blood Pressure 171/82 H 154/74 H Pulse Oximetry 96 95 01/28/18 18:00 01/28/18 19:47 01/28/18 20:00 Temperature 98.4 F Pulse Rate 70 86 Respiratory Rate 21 Blood Pressure 153/78 H Pulse Oximetry 94 L 96 01/28/18 22:00 01/29/18 00:00 01/29/18 02:00 Temperature 98.8 F Pulse Rate 75 70 86 Respiratory Rate 20 Blood Pressure 112/64 Pulse Oximetry 93 L 01/29/18 04:00 01/29/18 06:00 01/29/18 07:24 Temperature 98.4 F Pulse Rate 64 66 Respiratory Rate 18 Blood Pressure 132/72 Pulse Oximetry 95 95 Intake & Output 01/28/18 01/29/18 01/29/18 18:59 06:59 18:59 Intake Total 825 / 825 345 / 345 Output Total 700 / 700 Balance 825 / 825 -355 / -355 Weight 111.8 kg Intake: IV 105 / 105 105 / 105 Keppra Inj 500 MG In NS Inj 100 105 / 105 105 / 105 ML @ 400 mls/hr IV.SIG Q12H [facility] Rx#:[id number] Oral 720 / 720 240 / 240 Output: Urine 700 / 700 Other: # Voids 4 Date of Last Bowel Movement 01/27/18 01/27/18 # Bowel Movements 0 - Constitutional no acute distress, obese - Routine HEENT Exam Head: Absent: atraumatic (occipital scalp abrasion and sutures in place.) Eye: Present: PERRL (Pupils 3mm bilaterally reactive bilaterally.) - Routine Respiratory Exam Present: CTA bilaterally. Absent: respiratory distress, rhonchi, wheezes - Routine Cardiovascular Exam Present: RRR, S1, S2. Absent: murmur - Routine Abdominal Exam Present: soft, normoactive bowel sounds. Absent: tenderness, distended - Routine Skin Exam Absent: cyanosis, erythema - Routine Neurological Exam Present: alert, oriented X3, moving all extremities, normal speech. Absent: motor deficit, altered mental status - Routine Psychiatric Exam Present: normal affect, cooperative. Absent: anxious, agitated <Aldair Monsalve - Last Filed: 01/29/18 10:07> Vital signs: Vital Signs 01/28/18 16:00 01/28/18 18:00 01/28/18 19:47 Temperature 98.3 F Pulse Rate 92 H 70 Respiratory Rate 24 Blood Pressure 154/74 H Pulse Oximetry 95 94 L 01/28/18 20:00 01/28/18 22:00 01/29/18 00:00 Temperature 98.4 F 98.8 F Pulse Rate 86 75 70 Respiratory Rate 21 20 Blood Pressure 153/78 H 112/64 Pulse Oximetry 96 93 L 01/29/18 02:00 01/29/18 04:00 01/29/18 06:00 Temperature 98.4 F Pulse Rate 86 64 66 Respiratory Rate 18 Blood Pressure 132/72 Pulse Oximetry 95 01/29/18 07:24 01/29/18 08:00 01/29/18 10:00 Temperature 98.6 F Pulse Rate 62 78 Respiratory Rate 20 Blood Pressure 142/67 H Pulse Oximetry 95 92 L 01/29/18 12:00 Temperature 98.4 F Pulse Rate 72 Respiratory Rate 19 Blood Pressure 110/63 Pulse Oximetry 92 L Intake & Output 01/28/18 01/29/18 01/29/18 18:59 06:59 18:59 Intake Total 825 / 825 345 / 345 105 / 105 Output Total 700 / 700 Balance 825 / 825 -355 / -355 105 / 105 Weight 111.8 kg Intake: IV 105 / 105 105 / 105 105 / 105 Keppra Inj 500 MG In NS Inj 100 105 / 105 105 / 105 105 / 105 ML @ 400 mls/hr IV.SIG Q12H [facility] Rx#:[id number] Oral 720 / 720 240 / 240 Output: Urine 700 / 700 Other: # Voids 4 Date of Last Bowel Movement 01/27/18 01/27/18 01/27/18 # Bowel Movements 0 <Stephon Quach - Last Filed: 01/29/18 15:05> Assessment and Plan - Assessment (1) Intracranial hemorrhage Code(s): I62.9 - Nontraumatic intracranial hemorrhage, unspecified Status: Acute (2) Laceration of occipital scalp Code(s): S01.01XA - Laceration without foreign body of scalp, initial encounter Status: Acute Qualifiers: Encounter type: initial encounter Qualified Code(s): S01.01XA - Laceration without foreign body of scalp, initial encounter (3) Mild major neurocognitive disorder as late effect of traumatic brain injury without behavioral disturbance Code(s): S06.9X9S - Unspecified intracranial injury with loss of consciousness of unspecified duration, sequela; F02.80 - Dementia in other diseases classified elsewhere without behavioral disturbance Status: Acute - Plan A: [age]yoM in [facility] [place], small tSAH on eliquis. Spine cleared (CT C-spine negative). Head CT Some blossoming of right basal ganglia area contusion. P: Continue with neuro checks Continue to get oob with assistance. Continue with blood pressure control SCDs for DVT prophylaxis Continue with Keppra for seizure prophylaxis. Pt being transferred to floor. Discussed plan/care with RN. <Aldair Monsalve - Last Filed: 01/29/18 10:07> - Attending Attestation The exam, history, and the medical decision-making described in the above note were completed with the assistance of the mid-level provider. I reviewed and agree with the findings presented. I attest that I had a [id number] encounter with the patient on the same day, and personally performed and documented my assessment and findings in the medical record. <Stephon Quach - Last Filed: 01/29/18 15:05>
[2018-01-29] MEDS: Sodium Chloride 1 GM Tablet PO SCH ×2 (11:24→20:40)
[2018-01-29] MEDS: Enoxaparin Inj 30 MG/0.3 ML Syringe SQ SCH ×2 (11:24→20:40)
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
[2018-01-29] MEDS: Acetaminophen 325 MG Tablet PO PRN (13:52)
[2018-01-29] MEDS: Pantoprazole Inj 40 MG Vial IV.PUSH SCH (13:53)
[2018-01-29] MEDS: levETIRAcetam 500 MG Tablet PO SCH (20:40)
[2018-01-29] MEDS: QUEtiapine 100 MG Tablet PO SCH (20:40)
[2018-01-30 04:14] LABS: Hematocrit 31.8 % (39.0-51.0); Hemoglobin 10.7 gm/dL (13.0-17.0); Mean Corpuscular HGB Conc 33.5 % (32.0-36.0); Mean Corpuscular Hemoglobin 30.7 pg (27.0-34.0); Mean Corpuscular Volume 91.6 fL (80.0-100.0); Mean Platelet Volume 7.3 fL (7.0-11.0); Platelet Count 252 th/mm3 (150-450); Red Blood Count 3.48 mil/mm3 (4.50-5.90); Red Cell Distribution Width 15.8 % (11.6-17.2); White Blood Count 6.4 th/mm3 (4.0-11.0)
[2018-01-30] MEDS: Chlorhexidine Gluconate 2% 1 Pack (2 Cloths) TOPICAL SCH (04:17)
[2018-01-30 04:45] LABS: Calcium 8.6 mg/dL (8.5-10.1); Carbon Dioxide 27.7 meq/L (21.0-32.0); Potassium 3.7 meq/L (3.5-5.1)
--- NOTE | 2018-01-30 07:01 | P.PNNPSY ---
- Progress Notes/Response to Treatment Contents of Sessions: Adjustment, Level of consciousness Time with Patient: 30 minutes Premorbid Psychological Status: Premorbid Cognitive, Emotional and Behavioral Status: Stable. The patient has high school years of education and a solid work history prior to this injury. The patient has no prior psychiatric difficulties, as described above. Substance abuse history is unremarkable. Behavioral Reactions of Patient and Family/Support System: Stable. The patient s family is experiencing ongoing issues of adjustment given the nature of the injury, and this aspect of recovery will require ongoing monitoring. Emotional/Behavioral Status of Patient and Family/Support System: Stable. Pertinent issues, if appropriate to this patients clinical care, are described in detail above. Maximizing Acute Care Outcome: It is recommended that the patient be monitored for emergent behavioral impulsivity as the medical condition evolves. This patients neuropathological challenges may limit rehabilitation potential going forward, and these challenges will require specialized therapeutic skills to maximize outcome. Additionally, the patients family is experiencing ongoing issues of adjustment given the traumatic nature of the injury, and they may benefit from ongoing psychological assistance. At this point in the recovery process, the patient does have cognitive capacity as the patient is unable to understand a situation and its likely consequences, and he is able to manipulate information rationally. Cognitive capacity will be assessed throughout the recovery process. Anticipated Problems: Ongoing areas of concern will include behavioral impulsivity, lack of insight and judgment, which is expected to improve with time and treatment. Treatment Plan: This clinician will continue to follow with you throughout the course of this patients critical care treatment, and I will be available to meet with the patients family/support system to facilitate their understanding and the ongoing care of their family member. The goals of neuropsychological intervention shall be both educational and supportive to the family/support system as is deemed clinically appropriate. [place] COG Scale: Level Disinhibition Score: 14.00 Aggression Score: 14.00 Lability Score: 14.00 Agitated Behavior Total Score: 14 Impression: 62 year old male s/p complicated mild [place] [facility] [place]. Progress Note Narrative: PTD 4. The patient is neurobehaviorally stable, much improved in terms of cognition and behavior. ABS is now 14 (14,14,14). He is Rancho at least. He is to transfer to the floor. He is managed on Seroquel 25/25/50, Melatonin and remains on Keppra. Consider titrating Seroquel to 50HS. I will follow. - Diagnosis (1) Mild major neurocognitive disorder as late effect of traumatic brain injury without behavioral disturbance Status: Acute
[2018-01-30] MEDS: Gabapentin 400 MG Capsule PO SCH ×3 (08:10→17:19)
[2018-01-30] MEDS: Lisinopril 10 MG Tablet PO SCH ×2 (08:11→19:59)
[2018-01-30] MEDS: Docusate Sodium 100 MG Capsule PO SCH ×2 (08:11→20:00)
[2018-01-30] MEDS: Enoxaparin Inj 30 MG/0.3 ML Syringe SQ SCH ×2 (08:11→20:01)
[2018-01-30] MEDS: levETIRAcetam 500 MG Tablet PO SCH ×2 (08:11→19:59)
[2018-01-30] MEDS: Metoprolol Tartrate 25 MG Tablet PO SCH ×2 (08:11→20:00)
[2018-01-30] MEDS: amLODIPine 5 MG Tablet PO SCH (08:11)
[2018-01-30] MEDS: Sodium Chloride 1 GM Tablet PO SCH ×2 (08:11→20:00)
[2018-01-30] MEDS: QUEtiapine 25 MG Tablet PO SCH ×2 (08:14→14:50)
[2018-01-30] MEDS: Insulin NovoLIN Regular Correctional Sugar Inj SQ SCH ×3 (08:28→17:18)
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
[2018-01-30] MEDS: Pantoprazole Inj 40 MG Vial IV.PUSH SCH (14:49)
[2018-01-30] MEDS: Acetaminophen 325 MG Tablet PO PRN (17:16)
--- NOTE | 2018-01-30 17:53 | P.PNNS ---
Subjective Interval history: Pt awake and alert. Denies headache. No n/v. Less confusion. Physical Exam Vital signs: Vital Signs 01/29/18 18:00 01/29/18 20:00 01/29/18 22:00 Temperature 98.3 F Pulse Rate 62 61 74 Respiratory Rate 20 Blood Pressure 130/67 Pulse Oximetry 93 L 01/30/18 00:00 01/30/18 02:00 01/30/18 04:00 Temperature 98 F 98.0 F Pulse Rate 55 L 59 L 52 L Respiratory Rate 16 18 Blood Pressure 136/73 107/55 L Pulse Oximetry 94 L 94 L 01/30/18 06:00 01/30/18 08:00 01/30/18 10:00 Temperature 97.9 F Pulse Rate 50 L 48 L 61 Respiratory Rate 14 Blood Pressure 130/62 Pulse Oximetry 94 L 01/30/18 12:00 Temperature 98.1 F Pulse Rate 56 L Respiratory Rate 15 Blood Pressure 118/67 Pulse Oximetry 94 L Intake & Output 01/29/18 01/30/18 01/30/18 18:59 06:59 18:59 Intake Total 345 / 345 240 / 240 Output Total Balance 344 / 344 240 / 240 Weight 111.8 kg Intake: IV 105 / 105 Keppra Inj 500 MG In NS Inj 100 105 / 105 ML @ 400 mls/hr IV.SIG Q12H [facility] Rx#:[id number] Oral 240 / 240 240 / 240 Output: Urine Other: # Voids 1 Date of Last Bowel Movement 01/27/18 01/27/18 01/30/18 - Constitutional no acute distress, obese, cooperative - Routine HEENT Exam Head: Absent: atraumatic Eye: Present: PERRL (Pupils 3mm bilaterally.). Absent: conjunctival icterus - Routine Respiratory Exam Present: CTA bilaterally. Absent: respiratory distress, rhonchi, wheezes - Routine Cardiovascular Exam Present: RRR, S1, S2. Absent: murmur - Routine Abdominal Exam Present: soft, normoactive bowel sounds. Absent: distended, firm - Routine Skin Exam Absent: cyanosis, erythema - Routine Neurological Exam Present: alert, altered mental status (mild confusion but improved.), moving all extremities, normal speech. Absent: motor deficit - Routine Psychiatric Exam Present: normal affect, cooperative. Absent: anxious Assessment and Plan - Assessment (1) Intracranial hemorrhage Code(s): I62.9 - Nontraumatic intracranial hemorrhage, unspecified Status: Acute (2) Laceration of occipital scalp Code(s): S01.01XA - Laceration without foreign body of scalp, initial encounter Status: Acute Qualifiers: Encounter type: initial encounter Qualified Code(s): S01.01XA - Laceration without foreign body of scalp, initial encounter (3) Mild major neurocognitive disorder as late effect of traumatic brain injury without behavioral disturbance Code(s): S06.9X9S - Unspecified intracranial injury with loss of consciousness of unspecified duration, sequela; F02.80 - Dementia in other diseases classified elsewhere without behavioral disturbance Status: Acute - Plan A: 50-60yoM in [facility] [place], small tSAH on eliquis. Spine cleared (CT C-spine negative). Head CT Some blossoming of right basal ganglia area contusion. P: Continue with neuro checks Continue to get oob with assistance. Continue with blood pressure control SCDs for DVT prophylaxis Continue with Keppra for seizure prophylaxis. Pt being transferred to floor. Discussed plan/care with RN.
[2018-01-30] MEDS: QUEtiapine 100 MG Tablet PO SCH (19:59)
[2018-01-31] MEDS: Insulin NovoLIN Regular Correctional Sugar Inj SQ SCH ×2 (05:06→08:00)
[2018-01-31] MEDS: Docusate Sodium 100 MG Capsule PO SCH ×2 (05:06→08:11)
[2018-01-31] MEDS: hydrALAZINE HCl Inj 20 MG/ML Vial IV.PUSH PRN (05:09)
[2018-01-31] MEDS: Chlorhexidine Gluconate 2% 1 Pack (2 Cloths) TOPICAL SCH (05:09)
[2018-01-31] MEDS: Sodium Chloride 1 GM Tablet PO SCH (08:10)
[2018-01-31] MEDS: amLODIPine 5 MG Tablet PO SCH (08:10)
[2018-01-31] MEDS: levETIRAcetam 500 MG Tablet PO SCH (08:10)
[2018-01-31] MEDS: Enoxaparin Inj 30 MG/0.3 ML Syringe SQ SCH (08:10)
[2018-01-31] MEDS: Metoprolol Tartrate 25 MG Tablet PO SCH (08:10)
[2018-01-31] MEDS: Gabapentin 400 MG Capsule PO SCH (08:10)
[2018-01-31] MEDS: Lisinopril 10 MG Tablet PO SCH (08:10)
[2018-01-31] MEDS: QUEtiapine 25 MG Tablet PO SCH (08:11)
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
== END 2018-01-31 12:10 ==
LOC: NEPI 12:49 → EDBD 13:12 → MERGE 13:12 → NEDA 13:12 → N03 13:55
PROVIDERS: ADMIT Surgery; ATTEND Surgery